=== PATIENT | female | born 1940 | race Caucasian/White ===

== ENCOUNTER → 2016-12-05 | Outpatient (CLI) | payer MEDICARE, OTHER ==
[~2016-12-05] MED LIST: ADVIL200 MG PO; ASPIRIN325 MG PO; PRILOSEC20 MG PO; PROCARDIA XL30 MG PO; PROTONIX40 MG PO; TOPROL XL25 MG PO
== END | disposition disaster alternative care site (69) ==
LOC: GRAD 06:54
DX: R06.02 Shortness of breath (principal); Z53.8 Procedure and treatment not carried out for other reasons
CPT/HCPCS: J2785

== ENCOUNTER 2017-02-06 12:39 | Emergency (ER) | payer MEDICARE, OTHER ==
--- NOTE | ~2017-02-06 | ER ---
PATIENT'S NAME: LACY BURKETT [facility] AGE: 76 Y [address] ROOM: [place] [address] LOCATION: [facility] ADMIT DATE: 02/06/2017 ER/Outpatient Report DISCHARGE DATE: 02/06/2017 FAMILY PHYSICIAN: PHYSICIAN, NO ATTENDING PHYSICIAN: Alvarado Whaley Admission date and time documented in medical record. I saw the patient at 1205 hours. CHIEF COMPLAINT: Left lower anterior chest pain. HISTORY OF PRESENT ILLNESS: This patient is a 76-year-old female, who about an hour prior to admission to the emergency room developed some left anterior chest pain underneath her left breast. Brought to the emergency room for evaluation. On arrival, the patient had no chest pain. No diaphoresis, nausea, vomiting, diarrhea, or urinary complaints. She had just a transient numbness in the right side of her face, shaky right hand that lasted short time, few minutes. The left anterior chest pain underneath her left breast, resolved en route in the ambulance. Right now here in the emergency department, she has no complaints. No recent coughs, colds, flus, fever, chills, or sweats. No headache, eyes, ears, nose, throat, neck, or spine pain. No lightheadedness, dizziness, syncope, or near syncope. No fall or trauma. The patient describes the chest pain as a hard hit to the chest wall. No shortness of breath. No abdominal pain. No joint or muscle swelling, redness, or pain. No skin eruptions or rash. Does have a history of anxiety and depression. No endocrine problems or neuro changes. The patient does have a past history of vasospastic angina. HOME MEDICATIONS: See attached medication list. ALLERGIES: PENICILLIN, TAMBOCOR, ORANGE SODA. SOCIAL HISTORY: Nonsmoker, nondrinker. SIGNIFICANT PAST MEDICAL HISTORY: Atherosclerotic ischemic heart disease with coronary artery disease, vasospastic angina, gastroesophageal reflux, hypertension, SVT, depression, anxiety, mitral valve prolapse, sick sinus syndrome with diastolic dysfunction. OPERATIONS: PATIENT'S NAME: LACY BURKETT [facility] AGE: 76 Y [address] ROOM: [place] [address] LOCATION: [facility] ADMIT DATE: 02/06/2017 ER/Outpatient Report DISCHARGE DATE: 02/06/2017 FAMILY PHYSICIAN: PHYSICIAN, NO ATTENDING PHYSICIAN: Alvarado Whaley Bilateral knee arthroscopy, pacer, AICD placement, tonsillectomy, cardiac ablation, cardiac catheterization, stress test. REVIEW OF SYSTEMS: All systems reviewed by me are negative with exception of those discussed in the history of present illness. PHYSICAL EXAMINATION: VITAL SIGNS: Pulse 85 regular, respirations 20, blood pressure 173/80, O2 saturation on room air is 97%. HEAD: Normocephalic. EYES, EARS, NOSE, THROAT: Clear. Mucous membranes moist. NECK: No nuchal rigidity. No thyromegaly or cervical lymphadenopathy. No carotid bruits. SPINE: Nontender. No deformity. LUNGS: Clear. Good air flow. No rales, rhonchi, or wheezes. HEART: Regular. Pulses are palpable. No chest wall or ribcage pain to palpation. ABDOMEN: Soft, flat, nondistended, nontender. Good bowel tones. No organomegaly or abnormal mass palpable. No CVA tenderness. EXTREMITIES: Moves all 4 extremities. No peripheral edema, cyanosis, or deformity. NEURO: Cranial nerves intact. No lateralizing sign. The patient is awake and cooperative. Motor and sensory intact. SKIN: Clear. No skin eruptions or rash. DIAGNOSTIC STUDIES: Chest x-ray shows no acute infiltrate or changes. EKG showed paced rhythm. Laboratory: CPK x2 two hours apart were normal. Point of care cardiac enzymes x2 two hours apart were normal. Procalcitonin was less than 0.05. Lactate was 2.3. White count 6900, 67 segs, 25 lymphs, 6 monos, 2 eos. Hemoglobin 12.2 with hematocrit 37.0, platelet count is 222,000, PTT was 24, protime is 10 with an INR of 0.95. CMS was normal. Magnesium was 2.1. CRP was 0.30, TSH was 4.24, proBNP was 367. D-dimer was 0.81. Did do a CT scan of the chest with PE protocol after hydrating the patient. There was no evidence of pulmonary embolism or acute infiltrate. CT scan was read by Radiology, see dictated transcribed report. EMERGENCY DEPARTMENT COURSE: I did give the patient Ativan 1 mg IV in the emergency room for anxiety when she had a CT scan. This was to keep her from panic and get claustrophobic. IMPRESSION: 1. Left lower anterior chest pain, etiology uncertain. No evidence of PATIENT'S NAME: LACY BURKETT [facility] AGE: 76 Y [address] ROOM: [place] [address] LOCATION: [facility] ADMIT DATE: 02/06/2017 ER/Outpatient Report DISCHARGE DATE: 02/06/2017 FAMILY PHYSICIAN: PHYSICIAN, NO ATTENDING PHYSICIAN: Alvarado Whaley myocardial injury or pulmonary infiltrate or pulmonary embolism. This could be a spastic angina, could be musculoskeletal chest wall. The patient does have a history of coronary artery disease and vasospastic angina. She also has a history of gastroesophageal reflux. 2. Hypertension. 3. Depression and anxiety. 4. Mitral valve prolapse. 5. Sick sinus syndrome with diastolic dysfunction. 6. History of depression and anxiety. PLAN: The patient was dismissed home. Observation. Activity as tolerated. Continue present home medications and care. Diet and fluids as tolerated. Follow up with Dr. Jorje Schmidt, distance learning coordinator next week. Discussed ensued with the patient concerning my findings and recommendations, she understands. MD RONIT OLIVERA/modl /[id number] d: 02/06/17 2336 t: 02/07/17 0613, OUTPATIENT REPORT
[2017-02-06 13:16] LABS: BASOPHIL % 0.3 %; EOSINOPHIL # 0.1 K/uL (0.0-0.5); EOSINOPHIL % 1.6 %; HEMOGLOBIN 12.2 g/dL (10.0-15.0); IMMATURE GRANULOCYTE % 0.4 %; LYMPHOCYTE # 1.8 K/uL (0.8-4.0); LYMPHOCYTE % 25.3 %; MCH 30.2 pg (27.0-34.0); MCV 91.6 fl (83.0-98.0); MONOCYTE # 0.4 K/uL (0.0-1.0); MONOCYTE % 5.8 %; MPV 10.2 fl (9.4-12.4); NEUTROPHIL # (ANC) 4.6 K/uL (1.8-7.8); NEUTROPHIL % 66.6 %; NRBC % 0 /100WBC (0-0.00); PLATELET COUNT 222 K/uL (150-450); RBC 4.04 M/uL (3.50-5.50); WBC 6.9 K/uL (4.0-11.0)
[2017-02-06 13:26] LABS: INR - (THERAPEUTIC) 0.95 (0.92-1.07); PTT 24 SECONDS (25-32)
[2017-02-06 13:52] LABS: ALBUMIN 3.7 gm/dL (3.5-5.0); ALK PHOS 96 IU/L (33-138); ALT 17 IU/L (12-78); AST 19 IU/L (10-40); BLOOD UREA NITROGEN 14 mg/dL (6-24); CALCIUM 8.6 mg/dL (8.5-10.5); CHLORIDE 109 mMol/L (96-110); CO2 26 mMol/L (22-32); CPK 53 IU/L (21-215); MAGNESIUM 2.1 mg/dL (1.8-2.6); SODIUM 142 mMol/L (135-145); TOTAL BILIRUBIN 0.2 mg/dL (0.0-1.5); TOTAL PROTEIN 7.2 g/dL (6.0-8.4)
[2017-02-06 15:35] LABS: CPK 48 IU/L (21-215)
== END 2017-02-06 16:05 | disposition disaster alternative care site (69) ==
LOC: GMED 12:39
PROVIDERS: Emergency Medicine
DX: R07.89 Other chest pain (principal); I11.0 Hypertensive heart disease with heart failure; I50.30 Unspecified diastolic (congestive) heart failure; I25.10 Atherosclerotic heart disease of native coronary artery without angina pectoris; I34.1 Nonrheumatic mitral (valve) prolapse; F32.9 Major depressive disorder, single episode, unspecified; F41.9 Anxiety disorder, unspecified; I49.5 Sick sinus syndrome; K21.9 Gastro-esophageal reflux disease without esophagitis; Z88.0 Allergy status to penicillin; Z91.018 Allergy to other foods; Z88.8 Allergy status to other drugs, medicaments and biological substances; Z98.890 Other specified postprocedural states; Z95.0 Presence of cardiac pacemaker; Z90.89 Acquired absence of other organs; Z79.82 Long term (current) use of aspirin; Z79.899 Other long term (current) drug therapy
CPT/HCPCS: J2060; J7030; Q9967

== ENCOUNTER 2017-02-09 03:13 | Observation (INO) | payer MEDICARE, OTHER ==
[~2017-02-09] VITALS: Ht 144.8 cm; Wt 51.0 kg
--- NOTE | ~2017-02-09 | CATH ---
Cardiac Diagnostic Report Demographics Patient Name MADELAINE HOUSE Gender Female M Date of 1940 Age 76 year(s) Patient Number [id number] Date of Study 02/09/2017 Visit Number [id number] Room Number G63[address] [place] [id number] Ht 144.8 cm Wt 52.7 kg Referring Brayan Recinos MD Primary Physician Physician Performing Brayan Recinos MD Secondary Physician Physician Diagnostic Brayan Recinos MD Assisting Physician Physician Interventional Physician [employer] Head Inspector And Adjuster Physician Findings and Conclusions Diagnostic Findings and Conclusion Non-obsructive CAD Normal LV function, EF = 60% Diagnostic Recommendations Medical therapy Procedure Description The patient was brought to the diagnostic cardiac catheterization-EP laboratory in the fasting, non-sedated state. Informed consent was obtained in the written and verbal form after the risks and benefits were explained. The patient had no further questions and agreed to proceed. The planned puncture-incision site(s) were shaved and prepped with ChloraPrep and draped in the usual sterile manner. Conscious sedation, supplemental oxygen, and pain control medications were delivered by a registered nurse under physician guidance. Surface ECG rhythm, blood pressure measurement, and pulse oximetry were monitored throughout the procedure. Arterial access. The access site was infiltrated with lidocaine. The vessel was entered with the Seldinger technique. A sheath was advanced into the vessel and used for catheter placement. Selective left coronary angiography. A catheter was advanced into the left coronary vessel ostium under Fluoroscopic guidance. Contrast was injected by hand. Images were obtained in multiple projections. Selective right coronary angiography. A catheter was advanced into the right coronary vessel ostium under fluoroscopic guidance. Contrast was injected by hand. Images were obtained in multiple projections. Left heart catheterization with ventriculography. A catheter was advanced across the aortic valve to the left ventricle under fluoroscopic guidance. Resting hemodynamics were obtained. With the catheter at the left ventricular apex, contrast was injected. Images were obtained in [place] projections. Post-ventriculography LV pressure was obtained. The catheter was gradually withdrawn into the aorta with continuous pressure recording. Arterial artery hemostasis was achieved. The patient was transferred to a regular nursing floor via cart accompanied by a nurse. The patient left the laboratory in stable condition. Diagnostic Cath Status: Urgent Procedure Procedure Type Diagnostic procedure:Ventriculogram:, Left, Angiography:, Coronary Angios w/[facility] Indications: Unstable angina. The procedure was explained in detail to the patient. Risks, complications and alternative treatments were reviewed. Written consent was obtained. Medications Reviewed with Patient prior to Procedure. Angiographic Findings Dominance: Mixed Cardiac Arteries and Lesion Findings LMCA: Normal (0% Stenosis).medium LAD: Normal (0% Stenosis).LAD medium; Diag 1 is small, OK LCx: Normal (0% Stenosis).large; OM1 is small; OM2 is large RCA: Normal (0% Stenosis).normal;PL is small; PDA is small Procedure Data Procedure Date Date: 02/09/2017Start: 01:50 PMEnd: 02:12 PM Entry Locations - Retrograde Percutaneous access was performed through the Right Femoral artery (Primary location). A 6 Fr sheath was inserted. Hemostasis was successfully obtained using Angio-Seal STS PLUS (St. Mehran). Procedure Medications Order and Administration + + + +-------+ !Time !Medication !Dosage !Route ! + + + +-------+ !02/09/2017 01:39 PM !Versed !1 mg !I.V. ! + + + +-------+ !02/09/2017 01:39 PM !Fentanyl !50 mcg !I.V. ! + + + +-------+ !02/09/2017 01:47 PM !Oxygen !2 l/min !NC ! + + + +-------+ !02/09/2017 01:50 PM !Fentanyl !50 mcg !I.V. ! + + + +-------+ Devices Used - A6 Fr. BS JL 4 Diag. Catheterwas used for:Left coronary angiography. - A5 Fr. JJ 3DRC Diag. Catheterwas used for:Right coronary angiography. - A6 Fr. BS JR 4 Diag. Catheterwas used for:Was not used. - A6 Fr. BS Angled Pigtail Diag. Catheterwas used for:LV Pressures. Contrast Material - Isovue 48941 ml Fluoroscopy Time: Diagnostic: 1:36 minutes. Total: 1:36 minutes. Fluoroscopy Dose: Diagnostic: 261 mGy. Total: 261 mGy. Estimated Blood Loss: 15 ml. Medical History Performed Procedures and Imaging Results - No ACC stress or imaging studies were performed. Allergies - Penicillin. - Other:(tambocar). - Penicillin. - Other:(Tambocar). - Other:(Gilchrist soda). Risk Factors The patient risk factors include:hypertension, last creatinine: 1 mg/dl and creatinine clearance: 38.57 ml/min. Admission Data Admission Date: 02/09/2017 Admission Time: 08:17 AM Admit Source: Emergency department Insurance Payors: Medicare. Admission Medications + +------+------+ + + + + !Medication !Dosage!Times !Last !Last !Administered !Comments ! ! ! !Per !Delivery !Delivery ! ! ! ! ! !Day !Date !Time ! ! ! + +------+------+ + + + + !Beta ! ! ! ! !Yes ! ! !Aleksandar ! ! ! ! ! ! ! !(any) ! ! ! ! ! ! ! + +------+------+ + + + + Clinical Evaluation Leading to Procedure - The patient's CAD presentation was assessed as: Unstable angina. - The patient's anginal syndrome during the past two weeks was assessed as: Class III according to the Bowman Cardiovascular Society Classification System (CCS). Anti-anginal medications were prescribed during the past two weeks. The medication is: Beta Blockers. VA Ventriculography Findings Normal LV function, EF = 60% LV function assessed as:Normal. Ejection Fraction - 02/09/2017 - Method: LV gram. EF%: 60. LVA Segment Contractility 1 - Normal 3 - Mild 5 - Severe 7 - Dyskinesis hypokinesis hypokinesis 2 - 4 - Moderate 6 - Akinesis 8 - Aneurysm Hypokinesis hypokinesis Hemodynamics Condition: Rest O2 Consumption: Estimated: 149.89Heart Rate: 108 bpm Pressures (mmHg) +-----+ + !Site !Pressure ! +-----+ + !AO !182/70 (115) ! +-----+ + !LV !173/5 ,16 ! +-----+ + !LV !178/6 ,18 ! +-----+ + !LV !156/11 ,16 ! +-----+ + !AO !179/70 (117) ! +-----+ + !LV !173/4 ,18 ! +-----+ + !AO !178/68 (116) ! +-----+ + Valve Gradients and Areas + +---------+---------+---------+ +---------+ + !Valve !Peak !Mean !Area !Index !Flow !Source ! + +---------+---------+---------+ +---------+ + !Aortic !0 !0 ! ! ! ! ! + +---------+---------+---------+ +---------+ + !Aortic !0 !0 ! ! ! ! ! + +---------+---------+---------+ +---------+ + Shunts Oxygen Values O2 Capacity 155.04 O2 Consumption 149.89 Discharge Data Discharge Date: 02/10/2017 Hospital Status: Inpatient Signatures dtt: Jorje Schmidt (cardio) dtd: 02/09/17 1350 Physician Self Edit
--- NOTE | ~2017-02-09 | DS ---
PATIENT'S NAME: LACY BURKETT [facility] AGE: 76 Y [address] ROOM: [place] [address] LOCATION: [facility] ADMIT DATE: 02/09/2017 Discharge Summary DISCHARGE DATE: 02/10/2017 FAMILY PHYSICIAN: PHYSICIAN, NO ATTENDING PHYSICIAN: Severo Soto V ADMITTING DIAGNOSIS: Chest pain. DISCHARGE DIAGNOSIS: Chest pain, coronary artery disease ruled out. SECONDARY DIAGNOSES: 1. Vasospastic angina. 2. Hypertension. 3. Sick sinus syndrome. PROCEDURES: Coronary angiogram done on 02/09/2017. CONSULTATION: GI and Cardiology. HISTORY OF PRESENT ILLNESS: The patient is a 76-year-old female with past medical history of SVT, status post ablation and pacemaker placement; mitral valve prolapse; and vasospastic angina who was admitted through the emergency department with chief complaint of chest pain. The patient woke up around midnight with chest pain which she describes tightening around her chest gone back as well. She rates the pain 6/10 without alleviating or aggravating factors. Chest pain was associated with diaphoresis and shortness of breath. HOSPITAL COURSE: The patient was admitted and had coronary angiogram done. Coronary angiogram was unremarkable. The patient also had a consult and was seen by her GI physician for possible GI source for symptoms. The patient was offered EGD. The patient declined to have an EGD done. The patient had right upper quadrant ultrasound which showed cholelithiasis without signs of cholecystitis. The patient's symptoms improved during stay. The patient was discharged home with a trial of Protonix 40 mg daily, and also the patient was not on any medication for her vasospastic angina. The patient was started on 30 mg extended release nifedipine for her vasospastic angina. CONDITION: Stable. DISPOSITION: Home. DISCHARGE MEDICATIONS: See MAR. PENDING STUDIES: No pending studies. PATIENT'S NAME: LACY BURKETT [facility] AGE: 76 Y [address] ROOM: [place] [address] LOCATION: [facility] ADMIT DATE: 02/09/2017 Discharge Summary DISCHARGE DATE: 02/10/2017 FAMILY PHYSICIAN: PHYSICIAN, NO ATTENDING PHYSICIAN: Severo Soto V FOLLOWUP: Follow up with Dr. Schmidt and PCP in 1 week. PHYSICAL EXAMINATION: VITAL SIGNS: Temperature 97.7, blood pressure 149/67, heart rate of 76, respiratory rate of 12. GENERAL APPEARANCE: The patient is alert and awake, in no acute distress. CHEST: Clear to auscultation bilaterally. HEART: Regular rate and rhythm. No murmurs, rubs, or gallops. ABDOMEN: Soft, nontender, and nondistended. Bowel sounds present. PROGRAM MANUFACTURING LEADER: The patient is alert and oriented x3. Motor and sensory grossly intact. Greater than 30 minutes was spent on discharge summary. MD JULIENNE SANDERS/ritchie /[id number] d: 02/11/17 0341 t: 02/17/17 0614, DISCHARGE SUMMARY
--- NOTE | ~2017-02-09 | ER ---
PATIENT'S NAME: LACY BURKETT [facility] AGE: 76 Y [address] ROOM: [place] [address] LOCATION: [facility]U ADMIT DATE: 02/09/2017 ER/Outpatient Report DISCHARGE DATE: FAMILY PHYSICIAN: PHYSICIAN, NO ATTENDING PHYSICIAN: BUSTER EDWARDS V HISTORY OF PRESENT ILLNESS: This patient is a 76-year-old female, who comes in with chest pain, shortness of breath, and left facial numbness. The patient initially saw Dr. Becerra. See Dr. Becerra's dictation with regard to chief complaint, history of present illness, past medical history, physical exam, laboratory, x-ray, and EKG study results. Dr. Becerra transferred the patient's care to me at shift change. He asked me to follow up the patient's 2-hour cardiac enzymes, EKG results, final diagnosis, and treatment plan. LABORATORY DATA AND X-RAYS: The patient's CBC was within normal limits. Her PTT and protime were normal as well as her INR. Her chemistry was normal except for a low calcium of 8.3. Her initial CPK was 68, initial [id number] cardiac enzymes were normal, 2- hour CPK was 66 with normal cardiac enzymes at 2 hours. EKG showed no acute changes initially or at 2 hours. Chest x-ray was clear. CT scan of the head showed no intracranial bleed, midline shift, mass effect, or skull fracture. She had no neurological deficits. EMERGENCY DEPARTMENT COURSE: The patient was given nitroglycerin with some mild improvement. She was given Ativan with more improvement in her symptomatology. IMPRESSION: 1. Intractable chest pain, etiology uncertain. May be vasospastic angina, but needs further cardiac evaluation. 2. Facial numbness, etiology uncertain. Doubt that this is a cerebrovascular accident. 3. Hypertension. 4. Anxiety. 5. Mitral valve prolapse. 6. History of sick sinus syndrome with diastolic dysfunction. PLAN: Discussed the patient with Dr. Edwards, hospitalist. Dr. Edwards is coming to the emergency room to evaluate the patient and admit the patient to the hospital for further cardiac evaluation. PATIENT'S NAME: LACY BURKETT [facility] AGE: 76 Y [address] ROOM: [place] [id number] [facility] ADMIT DATE: 02/09/2017 ER/Outpatient Report DISCHARGE DATE: FAMILY PHYSICIAN: ANTONIO MARCOS ATTENDING PHYSICIAN: BUSTER EDWRADS V MD RONIT OLIVERA/kevinl /[id number] d: 02/09/17914 t: 02/10/17612, OUTPATIENT REPORT
--- NOTE | ~2017-02-09 | ER ---
PATIENT'S NAME: LACY BURKETT [facility] AGE: 76 Y [address] ROOM: [place] [address] LOCATION: [facility]PCU ADMIT DATE: 02/09/2017 ER/Outpatient Report DISCHARGE DATE: FAMILY PHYSICIAN: PHYSICIAN, NO ATTENDING PHYSICIAN: BUSTER EDWARDS V CHIEF COMPLAINT: Shortness of breath, chest pain, and right cheek numbness. HISTORY OF PRESENT ILLNESS: Ms. Burkett presents by ambulance for evaluation of the above complaints. She has had this exact same presentation several times in the past. She states that she has a history of vasospastic angina and some heart disease. She denies any history of blood clots. Nitroglycerin and Ativan have helped. Her most recent evaluation was on February 06. She did receive a PE protocol chest CT at that time and PE was ruled out. She denies any new symptoms. It does appear looking through old notes that she improves with Ativan or nitroglycerin. She has not received anything prior to arrival here this morning. There is nothing really new. Family notes that they think that her right cheek is actually more tight and the nasolabial fold is more pronounced than it typically is. No other neurologic deficits appreciated. The patient does state that she feels some tingling in her hands and they feel tight and she had some cramping in her feet on occasion. PAST MEDICAL HISTORY: Documented on the record and reviewed by me. SOCIAL HISTORY: Documented on the record and reviewed by me. MEDICATIONS: Documented on the record and reviewed by me. ALLERGIES: DOCUMENTED ON THE RECORD AND REVIEWED BY ME. REVIEW OF SYSTEMS: All systems reviewed and negative except as noted in the HPI. PHYSICAL EXAMINATION: VITAL SIGNS: Blood pressure 180/85, pulse 87, respiratory rate 16, temperature 97.6, SpO2 is 94% on room air. Pain is moderate. NEUROLOGIC: Awake and alert. GCS is 15. No focal deficits. No asymmetry. PATIENT'S NAME: LACY BURKETT [facility] AGE: 76 Y [address] ROOM: [place] [address] LOCATION: [facility]U ADMIT DATE: 02/09/2017 ER/Outpatient Report DISCHARGE DATE: FAMILY PHYSICIAN: PHYSICIAN, NO ATTENDING PHYSICIAN: BUSTER EDWARDS V Sensory exam of the face reveals increased sensation on the right side. She has no facial asymmetry. No facial droop. No dysarthria. No obvious vision changes. She has symmetric strength in all extremities. No appreciable deficits. HEENT: Normocephalic, atraumatic. Eyes are PERRL. Oropharynx is clear. NECK: Supple. Trachea is midline. HEART: Regular rate and rhythm. No murmurs. LUNGS: Clear to auscultation bilateral. No rhonchi, wheezes, or rales. ABDOMEN: Soft, nontender, and nondistended, otherwise, benign. BACK: Normal to inspection and palpation. No CVA or spinal tenderness. EXTREMITIES: Warm and well perfused. No deformities or edema. SKIN: Clean, dry, intact. LABORATORY DATA AND X-RAYS: Head CT was obtained, read as normal by Radiology. EKG was obtained, unchanged from multiple priors. Initial and repeat cardiac enzymes remain below threshold. CBC; no abnormalities of white count, hemoglobin, or platelets. INR is less than 1. CMS with no electrolyte abnormalities, renal function abnormalities, or appreciable liver abnormalities. Amylase and lipase are within normal limits. Blood gas, venous gas pH is 7.4, pCO2 is 47. Lactate is 2.3. Procalcitonin is undetectable. Free T4 is 0.9. TSH is 6.4, up from 4.2. IMPRESSION: 1. Dyspnea of unclear etiology. 2. Uncontrolled hypertension. 3. Lactic acidemia. 4. Likely mild hyperventilation. EMERGENCY DEPARTMENT COURSE: The patient was seen and evaluated. She had marked improvement in symptoms with Ativan to facilitate head CT. Her presentation was less consistent with cardiac ischemia. She does have a history of renal disease. Repeat troponin was unremarkable. She did have some improvement with nitroglycerin, however, was not pain-free. For these reasons, in this setting, I am recommending admission to the hospital. The patient will be admitted for further evaluation and treatment. Dr. Whaley facilitated admission to the hospital. Please see his dictation for completion of encounter. All questions were answered to the best of my ability. DELLA LABOY MD PATIENT'S NAME: DOMINICK BURKETTLINE Gary [facility] AGE: 76 Y [address] ROOM: [address] [address] LOCATION: [facility]PCU ADMIT DATE: 02/09/2017 ER/Outpatient Report DISCHARGE DATE: FAMILY PHYSICIAN: ANTONIO MARCOS ATTENDING PHYSICIAN: BUSTER EDWARDS/ritchie /[id number] d: 02/09/17 2319 t: 02/10/17 1253, OUTPATIENT REPORT
--- NOTE | ~2017-02-09 | CON ---
PATIENT'S NAME: LACY BURKETT [facility] AGE: 76 Y [address] ROOM: [address] [address] LOCATION: GPCU ADMIT DATE: 02/09/2017 Consultation DISCHARGE DATE: 02/10/2017 FAMILY PHYSICIAN: PHYSICIAN, NO ATTENDING PHYSICIAN: Severo Soto V REFERRING PHYSICIAN: Jorje Schmidt MD REFERRING PHYSICIAN: Dr. Soto REASON FOR CONSULTATION: Chest pain. HISTORY OF PRESENT ILLNESS: This is a 76-year-old female, well known to Dr. Schmidt with a history of sick sinus syndrome, AVNRT, and mitral valve prolapse. She presented to the Emergency Room with anterior chest discomfort underneath her left breast. Upon arrival, her pain was completely gone. She denied any diaphoresis, nausea, vomiting, or diarrhea. She was also complaining of some transient numbness in her right side of her face, and felt shaky in her right hand, but these only last a few short minutes. She has not had any problems with exertional chest pain, but she does complain of shortness of breath with activity. She denies orthopnea, PND, or pedal edema. She states that her sleep is very poor as well. She has had an overnight trend oximetry that was reported as normal. Cardiac enzymes were normal as well. PAST MEDICAL HISTORY: 1. Coronary artery disease and right coronary artery spasm per left heart catheterization in . 2. Sick sinus syndrome post Medtronic dual-chamber pacemaker implantation generator exchange in 04/2008. 3. 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 4. Diastolic dysfunction. 5. Mitral valve prolapse. 6. Anxiety. 7. Migraines. 8. History of closed head injury in 2008. 9. Gastroesophageal reflux disease. PAST SURGICAL HISTORY: 1. Tonsillectomy. 2. Cardiac ablation for AVNRT with pacemaker implant in 2001. 3. She has had a knee surgery in the form of arthroscope to both knees. 4. Generator exchange for pacemaker to [employer] on 05/24/2008. 5. Subdural hematoma in 05/2012. 6. Left heart catheterization with right coronary artery spasm, non- PATIENT'S NAME: LACY BURKETT [facility] AGE: 76 Y [address] ROOM: [address] [address] LOCATION: GPCU ADMIT DATE: 02/09/2017 Consultation DISCHARGE DATE: 02/10/2017 FAMILY PHYSICIAN: PHYSICIAN, NO ATTENDING PHYSICIAN: Severo Soto V obstructive disease on 01/11/2013. 7. Bilateral cataract surgery. 8. Right hand surgery with cyst removed. 9. She has also had colonoscopy in the past. SOCIAL HISTORY: She is . She is a former smoker. She quit smoking in her late 30s. She smoked in her 20s to 30s a pack of cigarettes a week for fourteen years. She does not drink alcohol. FAMILY HISTORY: She has one daughter who is diabetic, another daughter with diabetes and Parkinson's, another daughter who is healthy, a son who is healthy, and another son with a heart murmur. ALLERGIES: PENICILLIN, ORANGE POP, AND TAMBOCOR. HOME MEDICATIONS: 1. Aspirin 81 mg daily. 2. Latanoprost 0.005% one drop to the affected eye daily. 3. Metoprolol succinate 25 mg b.i.d. 4. Nitrostat 0.4 mg sublingual p.r.n. 5. Omeprazole 20 mg b.i.d. 6. Vitamin B12 shots two times a month. REVIEW OF SYSTEMS: HEAD: No history of headaches. EYES: No blurred vision. She has had cataract surgery and she wears corrective lenses. EARS: No problems with hearing. NOSE: No epistaxis or rhinorrhea. MOUTH: No gingival bleeding. THROAT: She denies sore throat, hoarseness, or difficulty swallowing. PULMONARY: No history of cough or hemoptysis. GASTROINTESTINAL: Negative for nausea, vomiting, or diarrhea. No melena or hematochezia. GENITOURINARY: Negative for urinary frequency or urgency. MUSCULOSKELETAL: No complaints of arthralgias or myalgias. NEUROLOGIC: She denies numbness or tingling or feelings of off balance. PSYCHIATRIC: No complaints of depression or anxiety at this time. PHYSICAL EXAMINATION: VITAL SIGNS: Her height is 4 feet 9 inches and she weighs 115 pounds and BMI is 25. Blood pressure is 130/60, heart rates are in the 70s, and O2 PATIENT'S NAME: LACY BURKETT [facility] AGE: 76 Y [address] ROOM: [id number] [place], [place] [id number] LOCATION: GPCU ADMIT DATE: 02/09/2017 Consultation DISCHARGE DATE: 02/10/2017 FAMILY PHYSICIAN: PHYSICIAN, NO ATTENDING PHYSICIAN: Severo Soto V saturations are 95%. GENERAL: She is alert and oriented. She answers questions appropriately. SKIN: Warm, dry, and pink. HEENT: Pupils are equal, round, and react briskly. Nose is non-deviated. No rhinorrhea is noted. Oral mucosa is pink and moist. No lesions are noted. NECK: Soft and supple. No lymphadenopathy or thyromegaly. CARDIOVASCULAR: Regular with a normal S1 and S2. ABDOMEN: Soft. Bowel sounds are present. PULMONARY: Lung sounds were clear bilaterally without wheezes, rales, or rhonchi. EXTREMITIES: Showed no peripheral edema. No clubbing. No cyanosis. PSYCHIATRIC: Mood and affect are pleasant. LABORATORY DATA: Cardiac enzymes are normal. ABG showed a pCO2 of 47 and pH of 7.4. Lactate was 2.3. CBC: WBC is 7.1 and hemoglobin is 11.4. Glucose of 99, BUN of 11, creatinine of 1, sodium of 145, and potassium of 4. Her UA was normal. ASSESSMENT AND PLAN: 1. Chest pain with history of abnormal stress. Dr. Schmidt has recommended that she undergo a left heart catheterization, and he has explained the risks and benefits to her. She is willing to proceed with that heart cath. 2. Hypertension. Blood pressures have been as high as 170s up to 180s. We are going to start her on amlodipine 2.5 mg p.o. everyday. The assessment, plan, history of present illness, and physical exam are per Dr. Schmidt. Further recommendations will be forthcoming once she undergoes the heart catheterization. RENEE SPRING APRN FOR MD TERRELL MULLINS/ritchie /[id number] d: 02/10/[id number] t: 02/13/17 0953, CONSULTATION REPORT
--- NOTE | ~2017-02-09 | CON ---
PATIENT'S NAME: LACY BURKETT [facility] AGE: 76 Y [address] ROOM: [place] [address] LOCATION: GPCU ADMIT DATE: 02/09/2017 Consultation DISCHARGE DATE: 02/10/2017 FAMILY PHYSICIAN: PHYSICIAN, NO ATTENDING PHYSICIAN: Severo Soto V DATE OF CONSULTATION: 02/09/2017 REFERRING PHYSICIAN: Jorje Schmidt MD GASTROENTEROLOGY CONSULTATION REFERRING PROVIDER: Maisha Babcock MD REASON FOR CONSULTATION: Chest pain, noncardiac. HISTORY OF PRESENT ILLNESS: This is a pleasant, 76-year-old female who was recently admitted with past medical history of SVT status post ablation and pacemaker placement, mitral valve prolapse, and diagnosis of vasospastic angina. The patient was admitted to the emergency room with chief complaint of chest pain that woke her up around midnight. She stated that it was like a belt around her upper abdomen to lower chest area, that was 6/10. She stated there were no alleviating or aggravating factors and persisted for a few hours as she then presented to the emergency room. The patient did undergo a heart catheterization that was negative. We were asked to see in consultation for the patient's abdominal discomfort as well as chest pain. The patient was seen and examined status post heart catheterization. Denies any known history of reflux per the patient's family who is at bedside as well. Denies any dysphagia or odynophagia. The patient did complain that the pain did radiate into the back mildly. Denies any associated nausea or vomiting or acid reflux. PAST MEDICAL HISTORY: 1. SVT status post ablation and pacemaker placement. 2. Mitral valve prolapse. 3. GERD. 4. Vasospastic angina. SOCIAL HISTORY: The patient quit smoking in her 30s. Lives in [place] with her . FAMILY HISTORY: PATIENT'S NAME: LACY BURKETT [facility] AGE: 76 Y [address] ROOM: [place] [address] LOCATION: GPCU ADMIT DATE: 02/09/2017 Consultation DISCHARGE DATE: 02/10/2017 FAMILY PHYSICIAN: PHYSICIAN, NO ATTENDING PHYSICIAN: Severo Soto V She denies any known gastrointestinal diseases or cancers to her knowledge. ALLERGIES: PENICILLINS AND FLECAINIDE. CURRENT MEDICATIONS: Please refer to medication administration record. REVIEW OF SYSTEMS: All point review of systems was completed. All were negative except for those identified in the history of present illness. PHYSICAL EXAMINATION: GENERAL: A very pleasant, 76-year-old female, lying in bed, who appears to be in no acute distress. VITAL SIGNS: Temperature 97.5, pulse is 74, respirations are 16, blood pressure 167/72, and oxygen saturation is 98% on room air. SKIN: [place], warm, and dry. No jaundice. HEENT: Head is normocephalic and atraumatic. Pupils are equal, round, and reactive to light. Sclerae are clear. Nonicteric. Oral mucosa is pink and moist. No thyromegaly. NECK: Soft and supple. CARDIOVASCULAR: Regular. Normal S1 and S2. RESPIRATORY: Respirations are even and unlabored. LUNGS: Clear to auscultation. ABDOMEN: Soft, flat, nontender, and nondistended. Bowel sounds positive x4 quadrants. MUSCULOSKELETAL: No muscle weakness or atrophy. EXTREMITIES: No edema. NEUROLOGIC: Grossly nonfocal. LABORATORY DATA AND IMAGING STUDIES: Labs and Diagnostics: White blood cell count is 7.1, hemoglobin of 11.4, hematocrit of 34.5, and platelets of 223,000. Chemistry panel includes a glucose of 99, BUN of 11, creatinine 1.0, sodium 145, potassium of 4.0, chloride of 110, and CO2 of 26. Liver function tests are within normal limits. Prothrombin time 10.0, INR is 0.95, and PTT of 25. Amylase on admission was 53, lipase was 65. TSH was 6.410, and free T4 was 0.9. ASSESSMENT AND PLAN: Again this is a very pleasant, 76-year-old female who was admitted with chest pain status post heart catheterization that was subsequently negative. We were asked to see in consultation at this time for evaluation as well as discussion with the patient and her family. We will go forth with an abdominal ultrasound to rule out cholecystitis. The patient's liver function PATIENT'S NAME: DOMINICK BURKETTLINE Gary [facility] AGE: 76 Y [address] ROOM: [place] [address] LOCATION: GPCU ADMIT DATE: 02/09/2017 Consultation DISCHARGE DATE: 02/10/2017 FAMILY PHYSICIAN: PHYSICIAN, NO ATTENDING PHYSICIAN: Severo Soto V tests are within normal limits. It will also be discussed after the resulting findings of the abdominal ultrasound for possible upper endoscopy to rule out gastroesophageal reflux disease. The patient verbalizes understanding as further recommendations to be given status post abdominal ultrasound. Thank you for this consult. CRYSTAL MILLER APRN FOR MD LINDSEY HOBBS/modl /[id number] d: 02/10/17 1517 t: 02/12/17 1323, CONSULTATION REPORT
--- NOTE | ~2017-02-09 | HP ---
PATIENT'S NAME: LACY BURKETT [facility] AGE: 76 Y [address] ROOM: [place] [address] LOCATION: GPCU ADMIT DATE: 02/09/2017 History & Physical DISCHARGE DATE: FAMILY PHYSICIAN: PHYSICIAN, NO ATTENDING PHYSICIAN: BUSTER EDWARDS V DATE OF SERVICE: CHIEF COMPLAINT: Chest pain. HISTORY OF PRESENT ILLNESS: A 76-year-old lady with a past medical history of SVT, status post ablation and pacemaker placement; mitral valve prolapse; and a diagnosis of vasospastic angina, was admitted through the emergency department with a chief complaint of chest pain, which woke her up around midnight, which was tightening like around her lower chest, going to the back as well, 01/03. No alleviating or aggravating factors. Persisted for a couple of hours until she got to the emergency department. Associated with diaphoresis and some shortness of breath. It is not associated with any fever or chills, but she has been complaining that she has been cold for the last couple of days. She also complained of clammy legs as well as some numbness on the right side of the face. She denied any other weakness in her limbs. She had been here in the emergency department a couple of days ago with similar complaints, and then she was admitted from the ER. On further inquiry, she denied any headache, any dizziness, any trouble with the eyes, or any trouble swallowing, but did endorse having some nonproductive cough for the past couple of days and low appetite. She denied any constipation , diarrhea, or burning on urination. She did endorse having PND in the last one week or so. This patient is a patient of Dr. Schmidt, and it appears that she had a stress test 4 weeks ago which was aborted and was not interpreted. I could not find any records in the system. PAST MEDICAL HISTORY: SVT, status post ablation and pacemaker placement; mitral valve prolapse; GERD; and vasospastic angina. ALLERGIES: THE PATIENT IS ALLERGIC TO PENICILLIN. MEDICATIONS: Being reconciled right now. FAMILY HISTORY: PATIENT'S NAME: LACY BURKETT [facility] AGE: 76 Y [address] ROOM: [place] [address] LOCATION: GPCU ADMIT DATE: 02/09/2017 History & Physical DISCHARGE DATE: FAMILY PHYSICIAN: PHYSICIAN, NO ATTENDING PHYSICIAN: BUSTER EDWARDS V Father had diabetes. SOCIAL HISTORY: Quit smoking in her 30s. Lives in [place] with her . REVIEW OF SYSTEMS: All other systems were reviewed and were negative except what is mentioned in the HPI. PHYSICAL EXAMINATION: VITAL SIGNS: Blood pressure 170/65, 65, 18, afebrile. GENERAL: No acute distress. Alert and oriented x3. HEENT: Head: Atraumatic, normocephalic. Eyes: Nonicteric. No pallor. Oropharynx: Dry mucous membranes. CARDIOVASCULAR: Variable S1 and S2. No murmur, gallop, or rub. LUNGS: Clear to auscultation bilaterally. ABDOMEN: Soft, nontender, and nondistended. Bowel sounds present. EXTREMITIES: No clubbing, cyanosis, or edema. PSYCHIATRIC: Low volume and speech, and a flat mood. NEUROLOGIC: Cranial nerves 2 through 12 intact. No motor or sensory deficit noted. MUSCULOSKELETAL: No muscle tenderness or joint swelling noted. LYMPHATIC: No lymphangitis or lymphadenopathy noted. ENDOCRINE: No thyromegaly or noted. LABORATORY DATA: Laboratory work in the emergency department was unremarkable for CBC, CMP, 2 sets of troponin, and a lipase level. EKG was done which showed ventricularly paced rhythms. Chest x-ray was done which did not show acute changes. A CAT scan of the head was also done which was read as normal. No further studies could be undertaken secondary to . ASSESSMENT: 1. Chest pain. 2. Mitral valve prolapse. 3. Gastroesophageal reflux disease. 4. Vasospastic angina. 5. Hypertension, essential. PLAN: We are going to admit this patient for observation. Two sets of troponins have been negative. We will advise another set. We will consult Dr. Schmidt regarding this patient. We will decide after cardiology consultation regarding further stress testing versus medical management at this point. She has not been drinking water lately, and we will hydrate her with some Ringer's PATIENT'S NAME: DOMINICK BURKETTLINE Gary [facility] AGE: 76 Y [address] ROOM: [address] [address] [facility] ADMIT DATE: 02/09/2017 History & Physical DISCHARGE DATE: FAMILY PHYSICIAN: , ANTONIO ATTENDING PHYSICIAN: BUSTER EDWARDS here. Her further course in the hospital will be dictated by her progress. DVT prophylaxis with Lovenox. Activity as tolerated. Diet is regular diet. MD KIYA STREETER/ritchie /[id number] D: [id number] T: [id number] HISTORY & PHYSICAL
[2017-02-09 03:42] LABS: BICARBONATE 29.1 mmol/L (18.0-23.0); LACTATE 2.3 mEq/L (0.50-1.60); PCO2 47 mmHg (35-45); PO2 38 mmHg (80-90)
[2017-02-09 03:43] LABS: BASOPHIL % 0.6 %; EOSINOPHIL # 0.2 K/uL (0.0-0.5); HEMATOCRIT 34.5 % (33.0-46.0); HEMOGLOBIN 11.4 g/dL (10.0-15.0); IMMATURE GRANULOCYTE % 0.1 %; LYMPHOCYTE # 2.3 K/uL (0.8-4.0); LYMPHOCYTE % 31.9 %; MCH 30.2 pg (27.0-34.0); MCV 91.5 fl (83.0-98.0); MONOCYTE # 0.5 K/uL (0.0-1.0); MONOCYTE % 7.2 %; MPV 9.8 fl (9.4-12.4); NEUTROPHIL # (ANC) 4.1 K/uL (1.8-7.8); NEUTROPHIL % 57.2 %; NRBC % 0 /100WBC (0-0.00); PLATELET COUNT 223 K/uL (150-450); RBC 3.77 M/uL (3.50-5.50); RDW-CV 13.2 % (11.9-14.6); WBC 7.1 K/uL (4.0-11.0)
[2017-02-09 03:52] LABS: INR - (THERAPEUTIC) 0.95 (0.92-1.07); PTT 25 SECONDS (25-32)
[2017-02-09 04:02] LABS: ALBUMIN 3.4 gm/dL (3.5-5.0); ALK PHOS 92 IU/L (33-138); ALT 17 IU/L (12-78); AST 19 IU/L (10-40); BLOOD UREA NITROGEN 11 mg/dL (6-24); CALCIUM 8.3 mg/dL (8.5-10.5); CHLORIDE 110 mMol/L (96-110); CO2 26 mMol/L (22-32); CPK 68 IU/L (21-215); SODIUM 145 mMol/L (135-145); TOTAL PROTEIN 6.7 g/dL (6.0-8.4)
[2017-02-09 04:04] LABS: TOTAL BILIRUBIN 0.3 mg/dL (0.0-1.5)
[2017-02-09 05:52] LABS: CPK 66 IU/L (21-215)
[2017-02-09] MEDS ORDERED: TOPROL XL25 MG PO (12:05)
[2017-02-09] MEDS ORDERED: PRILOSEC20 MG PO (12:06)
[2017-02-09] MEDS ORDERED: ADVIL200 MG PO (12:06)
[2017-02-10 04:27] LABS: ANION GAP 10.2 (10.0-19.0); CALCIUM 8.2 mg/dL (8.5-10.5); CREATININE 0.8 mg/dL (0.5-1.1); POTASSIUM 4.2 mMol/L (3.7-5.1)
[2017-02-10] MEDS ORDERED: ASPIRIN325 MG PO (11:00)
[2017-02-10] MEDS ORDERED: PROTONIX40 MG PO (11:02)
[2017-02-10] MEDS ORDERED: PROCARDIA XL30 MG PO (11:03)
== END 2017-02-10 12:15 | disposition disaster alternative care site (69) ==
LOC: GMED 03:13 → GPCU 08:17
PROVIDERS: Emergency Medicine; Internal Medicine; ADMIT Internal Medicine
DX: I25.110 Atherosclerotic heart disease of native coronary artery with unstable angina pectoris (principal); I34.1 Nonrheumatic mitral (valve) prolapse; I10 Essential (primary) hypertension; K21.9 Gastro-esophageal reflux disease without esophagitis; Z87.891 Personal history of nicotine dependence; F41.9 Anxiety disorder, unspecified; G43.909 Migraine, unspecified, not intractable, without status migrainosus; Z98.890 Other specified postprocedural states; Z79.82 Long term (current) use of aspirin; Z79.899 Other long term (current) drug therapy; Z95.0 Presence of cardiac pacemaker; Z88.0 Allergy status to penicillin
CPT/HCPCS: C1760; C9113; G8978; G8979; G8980; J1650; J2060; J2250; J3010; J7030; J7120